=== PATIENT | male | born 1970 | race Caucasian/White ===

== ENCOUNTER → 2024-03-12 07:36 | Outpatient (REF) | payer BC, SELFPAY | LOC: MRI 3T 07:36 | PROVIDERS: ATTENDING PHYSICIAN Internal Medicine Gastroenterology; FAMILY PHYSICIAN Family Medicine | DX: F17.200 Nicotine dependence, unspecified, uncomplicated (principal); Z12.10 Encounter for screening for malignant neoplasm of intestinal tract, unspecified; K50.00 Crohn's disease of small intestine without complications | CPT/HCPCS: 71271; 72197; 74183; A9575 ==

== ENCOUNTER 2025-08-24 18:32 | Inpatient (IN) | payer BC, SELFPAY ==
[2025-08-24] VITALS (9 sets, daily range): BP systolic 110–149; BP diastolic 67–93; BMI 21.0; BMI 20.9
[2025-08-24 14:17] LABS: Hematocrit 40.0 % (39.0-52.0); Hemoglobin 13.7 g/dL (13.0-18.0); Mean Corp Hgb Conc. 34.3 g/dL (33.0-37.0); Mean Corpuscular Volume 84.4 fL (80.0-94.0); Nucleated Red Blood Cells % 0 % (-); Platelet Count 219 10^3/uL (130-400); Red Cell Dist. Width 12.7 % (11.5-14.5); Urine Character Clear (Clear)
[2025-08-24 14:26] LABS: Urine Squamous Cell 0-2 /LPF (Few); Urine White Cell 0-2 /HPF (0-5)
--- NOTE | 2025-08-24 14:29 | ED.GENMED ---
History of Present Illness
General
Chief Complaint: Abdominal Symptoms
Source: patient
Exam Limitations: none
Time Seen by Provider: 08/24/25 13:25
Nursing documentation reviewed up to this point in time: agreed with
History of Present Illness
History of Present Illness:
The patient is a pleasant 55-year-old male who complains of intermittent lower abdominal pain, worse on the left than the right. Patient reports this started several days ago suddenly and was associated with multiple episodes of vomiting. He
reports the pain then went away for 3 days and came back again last night. Patient reports that it feels as though it is difficult for him to have a bowel movement and urinate. He denies any past history of abdominal surgery
Past History
Past History
ED Past Medical History: None
ED Past Surgical History: None
Social History
Tobacco: Smoker
Alcohol: Other
Drug: None
Personal: Other
Living: with family
Employment: Employed
Family History
Family History: Other
Review of Systems
Review of Systems
Allergies reviewed?: Yes
All Other Systems: ROS reviewed and negative except as documented in HPI and ROS
Constitutional: Reports no symptoms
EENT: Reports no symptoms
Respiratory: Reports no symptoms
Cardiac: Reports no symptoms
ABD/GI: Reports abdominal pain, nausea and vomiting
: Reports no symptoms
Musculoskeletal: Reports no symptoms
Skin: Reports no symptoms
Neurological: Reports no symptoms
Endocrine: Reports no symptoms
Hematologic/Lymphatic: Reports no symptoms
Psychiatric: Reports no symptoms
Phy Exam
Physical Exam
Physical Exam:
Physical Exam
General: no apparent distress, not acutely ill
Neck: supple. no meningeal signs. normal psoterior pharynx
Heart: s1/s2 regular rate and rhythm, no murmur. equal radial pulses.
Lungs: no acute respiratory distress. clear bilaterally
Abdomen: normal bowel sounds. not tender. no CVAT
Neuro: alert and oriented. no focal neurological deficits
Skin: no rash
Psychiatric: well kept. interactive and cooperative
Extremities: no edema. no calf tenderness. negative homans. good distal pulses
Course
Orders/Labs/Results
Orders:
Orders
08/24/25 14:06
Complete Blood Count/With Diff Urgent
Comprehensive Metabolic Panel Urgent
Urinalysis Reflex To Culture Urgent
Date Specimen was Collected: 08/24/25
Time Specimen was Collected: 13:58
Urine Microscopic Reflex Cult Urgent
08/24/25 14:52
Ketorolac [Toradol] 30 mg IV NOW STA
08/24/25 15:01
0.9% Sodium Chloride 1000 ml [Nss] 1,000 ml IV BOLUS
Ondansetron Injectable [Zofran] 4 mg IV NOW STA
08/24/25 15:04
CT Abd/pelvis W Iv Cont Urgent
Comment:
Reason For Exam: persistent vomiting and lower ab pain
08/24/25 17:47
CefTRIAXone [Rocephin] 1,000 mg IV NOW STA
Abnormal Lab Results
08/24/25
14:06
WBC 11.1 H 10^3/uL
(4.8-10.8)
Absolute Neuts (auto) 9.1 H 10^3/uL
(1.4-6.5)
Neutrophils % 82.1 H %
(42.2-75.2)
Lymphocytes % 12.2 L %
(20.5-51.1)
Creatinine 0.6 L mg/dL
(0.7-1.3)
Glucose 108 H mg/dl
(70-99)
Urine Ketones 2+ A
(Negative)
Ur Occult Blood Reflex 2+ A
(Negative)
Urine RBC 7-10 A /HPF
(0-2)
Urine Bacteria (Reflex) Few A
(Negative)
Urine Albumin (Reflex) 1+ A
(Neg - Trace)
08/24/25 14:06
08/24/25 14:06
Vital Signs
Initial and Last Documented VS:
Initial Vital Signs
Temp Pulse Resp BP Pulse Ox
98.2 F 69 16 149/93 98
08/24/25 13:20 08/24/25 13:20 08/24/25 13:20 08/24/25 13:20 08/24/25 13:20
Last Documented Vital Signs
Temp Pulse Resp BP Pulse Ox
98.2 F 52 16 123/82 98
08/24/25 13:20 08/24/25 17:45 08/24/25 17:45 08/24/25 16:00 08/24/25 14:30
MDM/Problems Addressed
Differential Diagnosis Includes:
Acute renal colic, acute diverticulitis, bowel obstruction
MDM/Problems Addressed:
Patient presents with acute abdominal pain and vomiting
Acute Exacerbation and/or Progression of Chronic Illness:
Patient may be acutely hypertensive due to pain
Acute Exacerbation and/or Progression of Chronic Illness: HTN
*Radiology
Radiology exam reviewed: radiology read reviewed
*Pulse Oximetry
SaO2: 98
Oxygen Mode of Delivery: Room air
Patient hypoxic: no
Comment: 98% on room air
*EKG
Interpreted by ED Provider?: NA
*Rope Cutter Interpretation
Rate: normal
Interpretation: normal
Rhythm: sinus
*Critical Care Note
Total Time (30-74mins, 75-104mins- exclusive of procedures): Not Applicable
Data Reviewed
Review of Other/Old Records Reveals: Testing (Colonoscopy report reviewed by me from 2022 which shows ileitis)
Source: patient
Patient Management
Social determinants of health affecting care: Living situation and Strong social support
Discussion with other providers: Hospitalist and Other (Dr. Stevenson who felt that patient should be admitted to the hospital and agreed to evaluate the patient tomorrow morning.)
ED Attending Note
-
Portions of this chart may have been created with voice recognition software.� Occasional wrong word or��sound alike� substitutions may have occurred due to the inherent limitations of voice recognition software.
Discharge Plan
Departure
Patient Disposition: Admit
Date of Disposition: 08/24/25
Time of Disposition: 17:47
Admit to: Med/Surg
Presentation/result/management discussed w/ accepting MD/DO: Hospitalist
Patient with high blood pressure during this ER visit?: Yes
Condition: Good
Covid-19: Not Applicable
Discharge Problem:
Acute pyelonephritis
Referrals:
Monalisa Espino MD [Family Provider, Family Practice]
Interventions
Interventions:
*Risk Screen - Suicide Last Done: 08/24/25 13:20
*General Assessment Last Done: 08/24/25 13:50
*Neglect/Abuse Screening Last Done: 08/24/25 13:20
*ED- Fall Risk Assessment Last Done: 08/24/25 13:50
*ED COVID-19 Vaccine History Last Done: 08/24/25 13:50
QC-Hbanaw-Mbvuxpkmbq Assessment Last Done: 08/24/25 13:50
Discharge Date and Time
Print Language: BURKINAN
[2025-08-24 14:55] LABS: ALT (SGPT) 28 U/L (0-50); AST (SGOT) 25 U/L (17-59); Albumin 4.6 g/dl (3.5-5.0); Alkaline Phosphatase 55 U/L (38-126); Blood Urea Nitrogen 14 mg/dl (9-20); Calcium 9.3 mg/dl (8.4-10.2); Carbon Dioxide 28 mmol/L (22-30); Chloride 104 mmol/L (98-107); Estimated Creatinine Clearance > 125 ml/min; Glucose 108 mg/dl (70-99); Potassium 4.5 mmol/L (3.5-5.1); Sodium 137 mmol/L (135-145); Total Protein 7.4 g/dl (6.3-8.2); eGFR > 60.00
[2025-08-24] MEDS: NSS 1000 IV (15:04)
[2025-08-24] MEDS: ZOFRAN 4 MG IV ×2 (15:04→18:20)
[2025-08-24] MEDS: TORADOL 30 MG IV (15:06)
--- NOTE | 2025-08-24 17:53 | HPS.HSE ---
Family Physician
-
Family Physician: Monalisa Espino MD
Chief Complaint
-
left lower quadrant pain
History of Present Illness
55-year-old male with no significant PMH presented to us with intermittent lower abdominal pain, worse on the left than the right. patient noticed pain few night night ago. he was fine for past few days. he noticed worsening pain last night and
was not able to sleep all night. denied nausea and vomiting. stated poor oral intake. patient stated he was having trouble moving his bowels and urinate. patient denied fever, chills, chest pain, sob. denied LUONG, dizzy or syncope. denied abdominal
pain,n,v,d. denied dysuria or hematuria.
CT concern for pyelonephritis. Patient received a dose of ceftriaxone, Toradol, Normal Saline, Zofran in the ER. Admitted for further management
Medical History
Past Medical History
Past Medical History: Reports Other
Additional Past Medical History:
HLD
terminal ileitis
Past Surgical History: Reports Other
Additional Past Surgical History:
right knee meniscus surgery
Social History
Tobacco: Smoker (Half a pack)
Alcohol: Occasional
Drug: None
Family History
Family History: Not pertinent
Allergies / Home Medications
Allergies reflects when Allergies were last updated in [facility].
Home Medications with original date entered in [facility]
Allergy/Medication List:
Allergies
Allergy/AdvReac Type Severity Reaction Status Date / Time
No Known Allergies Allergy Verified 08/24/25 13:23
Review of Systems
-
Constitutional: Reports No Symptoms
EENT: Reports No Symptoms
Respiratory: Reports No Symptoms
Cardiac: Reports No Symptoms
Abdomen/GI: Reports Nausea, Vomiting and Other (Lower quadrant pain)
: Reports No Symptoms
Musculoskeletal: Reports No Symptoms
Skin: Reports No Symptoms
Neurological: Reports No Symptoms
Endocrine: Reports No Symptoms
Hematologic/Lymphatic: Reports No Symptoms
Psych: Reports No Symptoms
Physical Exam
Vital Signs
Vital Signs
Temp Pulse Resp BP Pulse Ox
98.2 F 52 16 123/82 98
08/24/25 13:20 08/24/25 17:45 08/24/25 17:45 08/24/25 16:00 08/24/25 14:30
Physical Exam
General: Well Developed, Well Nourished and No Apparent Distress
HEENT: NormoCephalic, Moist mucous membranes and Atraumatic
Respiratory: Clear
Cardiac: S1/S2 and Regular Rhythm; No Murmur or Rub
GI: Soft, Non Tender, Non Distended, Normal Bowel Sounds and Tender; No Organomegaly
Rectal: Deferred by Provider
Musculoskeletal: No Clubbing, No Cyanosis and No Edema
Skin: No Rash
Neuro: AO x 3 and Nonfocal/grossly intact
Psych: Calm
Laboratory Results
-
08/24/25 14:06
08/24/25 14:06
Laboratory Results
Total Bilirubin 0.7 mg/dl (0.2-1.3) 08/24/25 14:06
AST 25 U/L (17-59) 08/24/25 14:06
ALT 28 U/L (0-50) 08/24/25 14:06
Alkaline Phosphatase 55 U/L (38-126) 08/24/25 14:06
Data Reviewed
-
CT Scan: Report Reviewed by me
Lab Data: Labs Reviewed by me
Impression/Plan
-
#left lower abdominal pain associated with n/v concern for acute pyelonephritis vs renal infarct
-wbc 11.1
-Ct abdomen pelvis with wedge-shaped region of decreased enhancement in the lower pole of the left kidney considered most suspicious for acute pyelonephritis in the appropriate clinical setting. A renal infarct could have a similar imaging
appearance, but no significant atherosclerosis by CT.Mild urinary bladder wall thickening. Recommend correlation with a urinalysis.
- IV ceftriaxone continue
- Tylenol as needed for fever or pain
- Dilaudid for pain
- Urology consulted
#sinus bradycardia
-HR in 50
-will monitor in tele
-obtain EKG
# DVT prophylaxis
- SCDs
# CODE STATUS
- full code
-
[2025-08-24] MEDS: ROCEPHIN 1000 MG IV (17:56)
[2025-08-24] MEDS: MORPHINE SULFATE 4 MG IV (18:21)
--- NOTE | 2025-08-24 18:21 | W.PN.UPDATE ---
Update Note
Progress Note Update
This note serves as an addendum to the H&P by installation coordinator SWATIheba SANDRA�
HPI
55M Smoker, HX HLD, terminal ileitis seen at ER:
- pw intermittent lower abdominal pain, worse Lt > Rt
- notd onset of acute pain few night night ago then was fine for past few days
- then worsening pain last night and was not able to sleep all night.
- poor oral intake
- having trouble moving his bowels and urinate.
+ abdominal pain, N/V
- denied dysuria or hematuria.
ROS:
- denied nausea and vomiting patient
- denied fever, chills
- denied chest pain, sob.
-
CT concern for pyelonephritis.
- Patient received a dose of ceftriaxone, Toradol, Normal Saline, Zofran in the ER.
PHX; as above
Relevant VS
Temp Pulse Resp BP Pulse Ox
98.2 F 52 16 123/82 98
08/24/25 13:20 08/24/25 17:45 08/24/25 17:45 08/24/25 16:00 08/24/25 14:30
PE
Gen:Not toxic
HEENT: anicteric
Neck: supple
Lungs:CTA
Cor:RRR S1S2
Abdomen: tender Lt flank , No CVA tenderness
IN HOME CAREGIVER: AAO3
MS:no edema
Psych:Nl mood and affect
Relevant data�
08/24/25
14:06
WBC 11.1 H
Creatinine 0.6 L
eGFR > 60.00
Urine RBC 7-10 A
Urine WBC (Reflex) 0-2
Urine Bacteria (Reflex) Few A
CT Abd/pelvis W Iv Cont
- wedge-shaped region of decreased enhancement in the lower pole of the left kidney considered most suspicious for acute pyelonephritis in the appropriate clinical setting.
- A renal infarct could have a similar imaging appearance, but no significant atherosclerosis by CT.
ASSESSMENT & PLAN
Pending Rx reconciliation
Acute intermittent L flank pain and tenderness associated with n/v
CT suspicion for Lt Kidney acute focal PN other DDX: renal infarct but no significant atherosclerosis by CT.
- Unremarkable UA for pyuria
- Afebrile
- WCC 11.1
- agree with empiric IV CFTX
- UCx sent
- Tylenol PRN fever or pain
- Dilaudid for severe pain
- Urology consulted
Sinus bradycardia with HR in 50
- Asymptomatic
- check TSH reflex to T4
- TLM
- obtain EKG
DVT Px: SCD
Full code
IP TLM
[2025-08-24] MEDS: DILAUDID 0.5 MG IV (20:06)
[2025-08-25] MEDS: DILAUDID 0.5 MG IV ×4 (02:01→21:08)
[2025-08-25 03:00] VITALS: BP 123/71
[2025-08-25 06:06] LABS: Hematocrit 37.2 % (39.0-52.0); Hemoglobin 12.5 g/dL (13.0-18.0); Mean Corp Hgb Conc. 33.6 g/dL (33.0-37.0); Mean Corpuscular Volume 87.1 fL (80.0-94.0); Platelet Count 221 10^3/uL (130-400); Red Cell Dist. Width 12.9 % (11.5-14.5)
[2025-08-25 06:34] LABS: Blood Urea Nitrogen 12 mg/dl (9-20); Calcium 9.0 mg/dl (8.4-10.2); Carbon Dioxide 28 mmol/L (22-30); Chloride 104 mmol/L (98-107); Estimated Creatinine Clearance 112 ml/min; Glucose 98 mg/dl (70-99); Potassium 4.9 mmol/L (3.5-5.1); Sodium 137 mmol/L (135-145); eGFR > 60.00
[2025-08-25 07:15] VITALS: BP 125/75
--- NOTE | 2025-08-25 09:41 | CM ---
Reviewed the chart notes and spoke with the patient at the bedside. The patient resides with his spouse in a raised ranch style home with two steps to enter. The patient reports no DME/VN/SNF in the past. The patient confirmed his pharmacy of
choice is [facility]. CM continues to be available to patient/family and is monitoring medical plan for needs at discharge.
Plan: Discharge to home when medically stable. No needs anticipated.
[2025-08-25] MEDS: NSS 1000 IV ×2 (10:16→20:18)
--- NOTE | 2025-08-25 10:55 | W.PN.URO.CBU ---
Today's Communication / Plan
-
send ur cx please
Assessment / Plan
-
segmental renal injury teat as pyelo and adminster iv abs empirically and analgesics await cxs
Diagnosis
-
Date of Service: August 25, 2025
-
Patient Diagnosis:
left renal infarction or infection segmental inury of [place] etiology no evidence ascending infection biu t possible no evidence vasc injury or blood born etiology
Post Op Day:
Subjective
-
nausea flank pain
Objective
-
Vital Signs
Temp Pulse Resp BP Pulse Ox
98.6 F 56 16 125/75 96
08/25/25 07:15 08/25/25 07:15 08/25/25 07:15 08/25/25 07:15 08/25/25 07:15
Intake and Output
08/24/25 08/25/25 08/26/25
06:59 06:59 06:59
Other:
Number of approximated MODERATE 1
amounts of urine
Laboratory Results
08/25/25 05:14
08/25/25 05:14
Review of Systems
-
Abdomen/GI: Nausea and Vomiting
: Flank Pain
Physical Exam
-
General - well developed, well nourished, no acute distress
Chest - clear bilaterally
Abdomen - soft, non-tender, positive bowel sounds, no CVAT, no incisional pain or distention
Genitalia - normal
Rectal - normal
Skin - warm & dry with no rash
Neuro - AOx3, no motor deficits
Extremities - no clubbing, no cyanosis, no edema
Incision - clean, dry
Dressing - clean, dry, intact
Care Review
Data Reviewed
Discussed with: Nursing and Family
CT Scan: Image Pers Reviewed
[2025-08-25 11:32] VITALS: BP 125/75
--- NOTE | 2025-08-25 12:53 | W.PN.HOSP.TC ---
Today's Communication/Plan
-
START IV fluids
Continue antibiotics
Follow WBC
Pending urine culture
Assessment / Plan
Assessment / Plan
Left sided Pyelonephritis
-CT abdomen Pelvis showed a wedge-shaped region of decreased enhancement in the lower pole of the left kidney considered most suspicious for acute pyelonephritis in the appropriate clinical setting. A renal infarct could have similar imaging
appearance, but no significant atherosclerosis by CT. Mild Urinary bladder wall thickening.
-WBC 11.1 on admission, 14.1 today
-Urine Culture pending
-Continue IV Ceftriaxone
-Started IV Fluids as patient cannot tolerate PO intake at the moment. Will d/c once eating appropriately
-Continue tylenol PRN for fever/pain
-Continue dilaudid for pain
-Patient will most likely require pain medication upon discharge.
-Urology is consulted, will appreciate their insight
Asymptomatic Sinus Bradycardia
-Patient with HR in the 50 and 60s, asymptomatic
-Normal cardiac catheterization technician interpretation in the ED
-Per spouse, this is normal as patient is very active
-Will continue to monitor
Anticipated Discharge: 24 - 48 hours
Subjective/Interval History
-
Date of Service: August 25, 2025
Patient reports feeling groggy from pain medication.
He states that starting last Tuesday, he began to experience primarily left sided lower abdominal/pelvic pain which wrapped around his pelvis to the right side. This was accompanied by nausea and vomiting, though he cannot remember if he had fevers
or chills. He does not recall any dysuria, increased or decreased urinary frequency. He does report having difficulty moving his bowels due to pain.
Today reports a complete lack of appetite, though he is currently free of nausea and vomiting. He has no known history of urinary tract infections or kidney infections before. His spouse reports that he has a known history of his heart beating
slowly, which they attribute to him being on his feet very frequently.
Objective Data
-
Labs:
Laboratory Results
09/28/25
05:14
WBC 14.1 H
Hgb 12.5 L
Hct 37.2 L
Plt Count 221
Sodium 137
Potassium 4.9
Chloride 104
Carbon Dioxide 28
BUN 12
Creatinine 0.7
Glucose 98
Calcium 9.0
Vital Signs:
Vital Signs
Temp Pulse Resp BP Pulse Ox
98.5 F 60 16 125/75 96
08/25/25 11:32 08/25/25 11:32 08/25/25 11:32 08/25/25 11:32 08/25/25 11:32
Review of Systems
-
History Source: Patient
Constitutional: Denies Fever or Chills
Respiratory: Denies Cough or Trouble Breathing
Cardiac: Denies Chest Pain or Palpitations
Abdomen/GI: Reports Abdominal Pain, Nausea and Vomiting
Genitourinary: Denies Dysuria, Frequency, Incontinence, Difficulty Voiding, Urgency, Bleeding or Hesitancy
Neuro: Denies Dizzy or Weakness
Physical Exam
-
General: Well Developed, Well Nourished, No Apparent Distress and Comfortable
HEENT: Normocephalic and Atraumatic
Respiratory: Clear to Auscultation
Cardiac: Regular Rhythm and S1/S2
GI: Soft, Nondistended, Normal Bowel Sounds and Tender (Tenderness of left side of abdomen with more intense tenderness of the left lower quadrant compared to the upper)
Genito-urinary: Costovertebral Angle Tend (Left side)
Musculoskeletal: No Edema
Skin: Warm and Dry
Neuro: Awake, Alert and Oriented
Psych: Calm and Intact Judgement/Insight
[2025-08-25 15:40] VITALS: BP 122/77
[2025-08-25] MEDS: STERILE WATER FOR INJECTION 10 ML IV (17:10)
[2025-08-25] MEDS: ROCEPHIN 1000 MG IV (17:10)
[2025-08-25] MEDS: TYLENOL 650 MG PO (17:10)
[2025-08-25 19:15] VITALS: BP 128/74
[2025-08-25 23:00] VITALS: BP 121/78
[2025-08-26 03:00] VITALS: BP 126/91
[2025-08-26] MEDS: TYLENOL 650 MG PO ×2 (03:15→08:06)
[2025-08-26] MEDS: TUMS CHEWABLE TABLET 200 MG PO ×2 (03:22→09:55)
[2025-08-26] MEDS: NSS 1000 IV (06:20)
[2025-08-26 07:00] VITALS: BP 126/83
--- NOTE | 2025-08-26 07:23 | W.PN.HOSP.TC ---
Addendum entered and electronically signed by Toni Sanford MD 08/26/25 23:02:
Attending Addendum:
I saw and evaluated the patient. I reviewed the resident�s note and agree with findings and plan as documented in the resident�s note. Sub: Pain in left flank. No NV appetite improved. pain controlled on Dilaudid. Ate lunch without difficulty,. No
urinary sxs fevers chills or gross hematuria. Seen with partner. would like to go home today if pain controlled with oxy. Full 12 point ROS reviewed and negative except as documented Exam: Vitals reviewed in chart GEN-NAD heart RRR lungs clear abd
soft ext- left /CVA flank tenderness to palp
Plan:
#Left Flank Pain Unclear if Acute Pyelonephritis
-no fevers chills NV
- ?passed stone?
-CT Scan- Wedge-shaped region of decreased enhancement in the lower pole of the left kidney considered most suspicious for acute pyelonephritis in the appropriate clinical setting. A renal infarct could have a similar imaging appearance, Mild
urinary bladder wall thickening
-urine cx-NGTD
-rocephin x 3 doses given
-f/u uro as OP, appreciate uro input-ok for DC
-cont pain control with Tylenol and Lidoderm patch, oxycodone - tolerated well
-DC home with close follow up
# Microscopic Hematuria
- send for urine cytology
# Sinus Lee- CTM
# Constipation- start aggressive bowel regimen
# Tobacco Abuse- advised to quit offered patch patient refused
Dispo DC home with partner
Time spent coordinating care, DC planning, review of DC plan of care with resident, transition of care, review of records, med rec/scripts sent electronically, consults, notes, d/w consultants, nursing, family, home pharmacy and CM� 32 mins >50% of
this time was devoted to counseling and coordination of care
Original Note:
Today's Communication/Plan
-
REDUCE dilaudid 0.5mg to 0.25mg
Monitor for pain
Ordered urine cytology
Scheduled miralax, tylneol
Added PRN oxycodone 2.5 and 5mg for moderate and severe pain respectively
D/c telemetry
Assessment / Plan
Assessment / Plan
Left sided Pyelonephritis
-CT abdomen Pelvis showed a wedge-shaped region of decreased enhancement in the lower pole of the left kidney considered most suspicious for acute pyelonephritis in the appropriate clinical setting. A renal infarct could have similar imaging
appearance, but no significant atherosclerosis by CT. Mild Urinary bladder wall thickening.
-WBC 11.1 on admission, 14.1 today
-Urine Culture showed no growth
-Discontinue Ceftriaxone
-Made PRN tylenol scheduled to help reduce pain
-Continue Dilaudid for pain. Decreasing dose from 0.5mg to 0.25mg in hopes that this helps with his side effects as it does control his pain well. Will follow up throughout the day to see if other adjustments must be made to his pain regimen.
-Ordered Oxycodone 2.5mg PRN for moderate pain and 5mg PRN for severe pain
-Renewed IV fluids today
-D/c'ed telemetry
-Ordered urine cytology
-Patient will most likely require pain medication upon discharge.
-Urology is following, will appreciate their insight
Constipation
-Continue PRN bowel regimen, though made Miralax scheduled
-At this point patient would like to avoid an enema but if constipation persists may require milk and molasses enema
-Will monitor
Asymptomatic Sinus Bradycardia
-Patient with HR in the 50 and 60s, asymptomatic
-Normal project admin interpretation in the ED. EKG 08/25/2025 showed sinus bradycardia
-Per spouse, this is normal as patient is very active
-D/c telemetry today
-Will continue to monitor
Anticipated Discharge: Within 24 hours
Subjective/Interval History
-
Date of Service: August 26, 2025
Patient was sitting in his room when I arrived. He continued to experience 8/10 left sided abdominal pain and lack of appetite without nausea or vomiting. He reports eating only a few bites of egg yesterday throughout the entire day. He states he
has continued to take Tylenol, but has been trying to avoid Dilaudid as it makes him groggy despite controlling his pain well.
He has been experiencing some constipation. He last had a small bowel movement early Tuesday morning, and feels like he needs to 'get something out' though he does not want to strain either. This is abnormal for him, starting around Tuesday of last
week.
Objective Data
-
Labs:
Laboratory Results
08/26/25
06:43
WBC Pending
Hgb Pending
Hct Pending
Plt Count Pending
Sodium Pending
Potassium Pending
Chloride Pending
Carbon Dioxide Pending
BUN Pending
Creatinine Pending
Glucose Pending
Calcium Pending
Vital Signs:
Vital Signs
Temp Pulse Resp BP Pulse Ox
99 F 81 16 126/91 97
08/26/25 03:00 08/26/25 03:00 08/26/25 03:00 08/26/25 03:00 08/26/25 03:00
I&O
08/25/25 08/26/25 08/27/25
06:59 06:59 06:59
Intake Total 1759
Balance 1759
Review of Systems
-
History Source: Patient
Constitutional: Reports No Appetite; Denies Fever or Chills
Respiratory: Denies Cough or Trouble Breathing
Cardiac: Denies Chest Pain
Abdomen/GI: Reports Abdominal Pain and Constipated; Denies Nausea, Vomiting or Diarrhea
Genitourinary: Reports Flank Pain; Denies Dysuria, Frequency or Incontinence
Neuro: Reports Lightheadedness (From dilauidid, reports it as 'groggy'); Denies Dizzy, Headache, Weakness or Numbness
Physical Exam
-
General: Well Developed, Well Nourished and No Apparent Distress
HEENT: Normocephalic and Atraumatic
Respiratory: Clear to Auscultation
Cardiac: Regular Rhythm, S1/S2 and Bradycardic
GI: Soft, Nontender (Right quadrants only), Nondistended, Tender (Left quadrants, reportedly increases pain from 8/10 to 9/10 on palpation, worse in lower quadrant than upper quadrant, no guarding) and Other
Musculoskeletal: No Edema
Skin: Warm and Dry
Neuro: Awake, Alert and Oriented
Psych: Calm
[2025-08-26 07:39] LABS: Hematocrit 36.5 % (39.0-52.0); Hemoglobin 12.1 g/dL (13.0-18.0); Mean Corp Hgb Conc. 33.2 g/dL (33.0-37.0); Mean Corpuscular Volume 85.3 fL (80.0-94.0); Platelet Count 211 10^3/uL (130-400); Red Cell Dist. Width 12.6 % (11.5-14.5)
[2025-08-26 08:06] LABS: Blood Urea Nitrogen 10 mg/dl (9-20); Calcium 8.6 mg/dl (8.4-10.2); Carbon Dioxide 26 mmol/L (22-30); Chloride 107 mmol/L (98-107); Estimated Creatinine Clearance 112 ml/min; Glucose 86 mg/dl (70-99); Potassium 4.2 mmol/L (3.5-5.1); Sodium 137 mmol/L (135-145); eGFR > 60.00
[2025-08-26 09:54] LABS: LDH 283 U/L (120-246)
[2025-08-26 11:00] VITALS: BP 125/76
--- NOTE | 2025-08-26 11:50 | W.PN.URO.CBU ---
Today's Communication / Plan
-
no gu intervention
Assessment / Plan
-
segmental renal injury teat as pyelo and adminster iv abs empirically and analgesics await cxs can discharge when tolerating pain on oral analgesics prefeably not ansaids t/c tramadol
Diagnosis
-
Date of Service: August 26, 2025
-
Patient Diagnosis:
Post Op Day:
Patient Diagnosis:
left renal infarction or infection segmental inury of [place] etiology no evidence ascending infection biu t possible no evidence vasc injury or blood born etiology
Post Op Day:
Subjective
-
tylenol not too effective but somewhat
Objective
-
Vital Signs
Temp Pulse Resp BP Pulse Ox
98.2 F 61 20 125/76 98
08/26/25 11:00 08/26/25 11:00 08/26/25 11:00 08/26/25 11:00 08/26/25 11:00
Intake and Output
08/25/25 08/26/25 08/27/25
06:59 06:59 06:59
Intake Total 1760 / 1760
Balance 1760 / 1760
Intake:
Oral fluids 660 / 660
IV fluids (Total) 1100 / 1100
Other:
Number of approximated MODERATE 1 3
amounts of urine
Laboratory Results
08/26/25 06:43
08/26/25 06:43
Review of Systems
-
: Flank Pain
Physical Exam
-
General - well developed, well nourished, no acute distress
Chest - clear bilaterally
Abdomen - soft, non-tender, positive bowel sounds, no CVAT, no incisional pain or distention
Genitalia - normal
Rectal - normal
Skin - warm & dry with no rash
Neuro - AOx3, no motor deficits
Extremities - no clubbing, no cyanosis, no edema
Incision - clean, dry
Dressing - clean, dry, intact
[2025-08-26] MEDS: ROXICODONE 2.5 MG PO (12:04)
[2025-08-26] MEDS: SENOKOT-S 1 TABLET PO (13:55)
[2025-08-26] MEDS: LIDOCAINE 4% PATCH 1 PATCH TOPICAL (14:28)
[2025-08-26 15:00] VITALS: BP 127/77
[2025-08-26] MEDS: ROXICODONE 5 MG PO (15:28)
[2025-08-26] MEDS: ROCEPHIN 1000 MG IV (17:35)
[2025-08-26] MEDS: STERILE WATER FOR INJECTION 10 ML IV (17:35)
--- NOTE | 2025-08-26 19:03 | W.DCSUMMARY ---
Addendum entered and electronically signed by Toni Sanford MD 08/26/25 23:18:
Read, reviewed, and agree. See same day progress note for additional details. Given script for 5 day supply #15 Oxycodone 5mg-verified with pharmacy
Conner Sanford MD
Original Note:
Documented by User: Maida Yao DO, Resident 08/26/25 19:11
Discharge Summary
Discharge Data
Date of Admission: 08/24/25
Date of Discharge: 08/26/25
-
Pending Results: Yes
Additional Pending Results:
Urine cytology
Hospital Course
Discharging Physician : Dr. Sanford
Disposition : Good
Primary care physician : Dr. Espino
Principal Discharge diagnosis : Pyelonephritis
Chronic Discharge diagnosis : None
Hospital Course :
This is a 55 y/o male with no significant pmhx who presented to the hospital on 08/24/2025 with left sided lower abdominal pain wrapping around his pelvis to the right side accompanied by nausea and vomiting that began last Tuesday but intensified
throughout the week. It was not accompanied by dysuria, increased/decreased urinary frequency, discharge. It was accompanied by constipation beginning on Tuesday, and poor appetite.
CT scan of the abdomen/pelvis in the ED showed a wedge-shaped region of decreased enhancement in the lower pole of the left kidney considered most suspicious for acute pyelonephritis in the appropriate clinical setting. A renal infarct could have
similar imaging appearance, but no significant atherosclerosis by CT. Mild Urinary bladder wall thickening. Urinalysis showed few bacteria. He was started on IV Ceftriaxone and admitted to the hospital for further management. Urology was consulted
On 08/25 he continued to experience pain which was relieved by Dilaudid but this caused him increased grogginess. His nausea resolved, but he continued to have poor appetite. He continued on antibiotics until 08/26, when his urine culture was negative
for growth. He was transitioned to 5mg oxycodone which improved his pain without side effects. He also tolerated more food on this day. He was given another dose of IV Ceftriaxone, and was found to be medically stable for discharge. He was
encouraged to follow up with his PCP in less than 1 week, have a CT w/ w/o IV contrast of the abdomen/pelvis in 5 weeks post discharge, and follow up with urology in 6 weeks post discharge. He was also encouraged to take miralax regularly to help
with his constipation.
Important imaging findings : As above
Procedure findings : None
Discharge Plan
-
Patient Disposition: Home (Routine Discharge)
Discharge Diagnosis/Procedures: Pyleonephritis
Condition: Good
Diet: No restrictions
Activity: No restrictions
Driving Restrictions: As prior to admission
Bathing Restrictions: None
Others Tests: CT scan abdomen/pelvis without contrast in five weeks.
Referrals:
Giovani Stevenson MD [Active, Urology]
Referral Note: [facility] dr stevenson [phone] for appt 4- 6 weeks will need repeat ct scan before visit
Monalisa Espino MD [Family Provider, Family Practice] - in less than 1 week
Additional Discharge Medication Instructions: In less than one week you should follow up with your primary care provider. Please take miralax every 12 hours. If you do not have a bowel movement in the next two days despite miralax, let your primary
care doctor know.
If you develop fevers or chills, please let your doctor know.
In five weeks time, you should obtain a CT scan of your abdomen/pelvis with AND without IV contrast. Your primary care doctor should order this for you. Please follow up with outpatient urology in six weeks after discharge.
You are being sent home with a physical script for oxycodone 5mg. Please take this as needed every 8 hours for severe pain.
Discharge Orders:
Discharge Patient (As Directed); Ordered 08/26/25
Ordered By: Maida Yao
Discharge Date and Time
Discharge Date/Time: 08/26/25 18:15
Print Language: ICELANDIC

Documented by User: Toni Sanford MD 08/26/25 22:48
Discharge Summary
Discharge Data
Date of Admission: 08/24/25
Date of Discharge: 08/26/25
Discharge Plan
-
Patient Disposition: Home (Routine Discharge)
Discharge Diagnosis/Procedures: Pyleonephritis
Condition: Good
Diet: No restrictions
Activity: No restrictions
Driving Restrictions: As prior to admission
Bathing Restrictions: None
Others Tests: CT scan abdomen/pelvis without contrast in five weeks.
Referrals:
Giovani Stevenson MD [Active, Urology]
Referral Note: [facility] [phone] for appt 4- 6 weeks will need repeat [address] scan before visit
Monalisa Espino MD [Family Provider, Family Practice] - in less than 1 week
Additional Discharge Medication Instructions: In less than one week you should follow up with your primary care provider. Please take miralax every 12 hours. If you do not have a bowel movement in the next two days despite miralax, let your primary
care doctor know.
If you develop fevers or chills, please let your doctor know.
In five weeks time, you should obtain a CT scan of your abdomen/pelvis with AND without IV contrast. Your primary care doctor should order this for you. Please follow up with outpatient urology in six weeks after discharge.
You are being sent home with a physical script for oxycodone 5mg. Please take this as needed every 8 hours for severe pain.
Discharge Orders:
Discharge Patient (As Directed); Ordered 08/26/25
Ordered By: Maida Yao
Discharge Date and Time
Discharge Date/Time: 08/26/25 18:15
Print Language: ICELANDIC
--- NOTE | 2025-08-27 08:06 | CM ---
addendum note 08/26/25 13:00
Spoke with patient in room He said that he was weaning pain medicine and thought he may be discharge 08/26/25.
H said Ernie will drive him home.
Offered VN he declined need.
Home no needs .
== END 2025-08-26 18:15 | disposition home or self-care (01) | DRG 690 ==
LOC: 4 EAST ACU 18:32
PROVIDERS: Registered Nurse; ADMITTING PHYSICIAN Internal Medicine; ATTENDING PHYSICIAN Family Medicine; CONSULT PHYSICIAN Specialist; EMERGENCY PHYSICIAN Emergency Medicine; FAMILY PHYSICIAN Family Medicine
DX: N10 Acute pyelonephritis (principal); K50.00 Crohn's disease of small intestine without complications; E78.5 Hyperlipidemia, unspecified; F17.210 Nicotine dependence, cigarettes, uncomplicated; K59.00 Constipation, unspecified; R31.29 Other microscopic hematuria
CPT/HCPCS: 74177; 80048; 80053; 81003; 81015; 83615; 84443; 85025; 85027; 87086; 88112; 93005; 96361; 96374; 96375; 96376; 99285; Q9967

== ENCOUNTER → 2025-09-12 13:33 | Outpatient (REF) | payer BC, SELFPAY | LOC: DHVS 13:33 | PROVIDERS: ATTENDING PHYSICIAN Physician Assistant | DX: M79.602 Pain in left arm (principal) | CPT/HCPCS: 93971 ==

== ENCOUNTER → 2025-09-23 08:13 | Outpatient (REF) | payer BC, SELFPAY | LOC: RAD 08:13 | PROVIDERS: ATTENDING PHYSICIAN Nurse Practitioner | DX: N10 Acute pyelonephritis (principal) | CPT/HCPCS: 74178; Q9967 ==